=== PATIENT | female | born 1975 | race Two or more races ===

== ENCOUNTER 2021-03-22 12:46 | Outpatient (CLI) | payer OTHER | END 2021-03-22 13:04 | disposition home or self-care (01) | LOC: SONOGRAMA 12:46 | PROVIDERS: ATTEND Surgery | DX: D24.2 Benign neoplasm of left breast (principal); N60.22 Fibroadenosis of left breast; N60.11 Diffuse cystic mastopathy of right breast; N60.12 Diffuse cystic mastopathy of left breast ==

== ENCOUNTER 2021-05-07 06:53 | Day surgery (SDC) | payer OTHER | END 2021-05-07 16:00 | disposition home or self-care (01) | LOC: CIR.AMB 06:53 | PROVIDERS: ATTEND Surgery | DX: N60.82 Other benign mammary dysplasias of left breast (principal); Z20.822 Contact with and (suspected) exposure to COVID-19 ==